=== PATIENT | female | born 2000 | race Caucasian/White ===

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

== ENCOUNTER 2018-04-06 07:57 | Inpatient (IN) | payer MEDICAID ==
[~2018-04-06] VITALS: Ht 152.4 cm; Wt 110.9 kg
[2018-04-06] VITALS (44 sets, daily range): BP systolic 109–140; BP diastolic 53–83; PULSE 68–100; TEMP 97.4–98.6
[~2018-04-06 07:57] MED LIST changes: +MOTRIN 600600 MG/TAB PO; +PRENATAL VITAMI1 TA3 PO
[2018-04-06 09:00] LABS: BASO % 0.2 % (0.0-2.0); EOS # 0.1 (0.0-0.7); EOS % 1.1 % (0-4.0); GRAN # 8.5 (1.4-6.5); GRAN % 78.1 % (42.2-75.2); LYMPH # 1.7 (1.2-3.4); LYMPH % 16.1 % (20.0-51.0); MEAN CELL VOLUME 85 fl (80.0-95.0); MEAN CORPUSCULAR HGB CONC 32 g/dl (33.0-37.0); MEAN PLATELET VOLUME 9.8 fl (7.4-10.4); MONO # 0.4 (0.1-0.6); MONO % 4.1 % (1.7-9.3); PLATELET COUNT 212 K/mm3 (130-400); RED BLOOD COUNT 3.43 M/mm3 (4.10-5.30)
[2018-04-06 09:01] LABS: HEMATOCRIT 29.1 % (35.0-45.0); HEMOGLOBIN 9.4 g/dl (12.0-15.0); MEAN CORPUSCULAR HEMOGLOBIN 27 pg (26.0-32.0)
[2018-04-06 09:39] LABS: HIV 1/2 Antibodies Non-Reactive; HIV-1p24 Antigen Non-Reactive
[2018-04-06 11:03] LABS: COLLECTION METHOD CATHETER
[2018-04-06 11:23] LABS: PH 7 (5-8); SQUAMOUS EPITHELIAL 0-2 /hpf; TRICYCLIC ANTIDEPRESS URINE NEGATIVE; URINE APPEARANCE Clear; URINE BACTERIA Rare /hpf; URINE BILIRUBIN Negative (NEGATIVE); URINE BLOOD 2+ (NEGATIVE); URINE COLOR Yellow; URINE GLUCOSE Negative (NEGATIVE); URINE KETONE Trace (NEGATIVE); URINE LEUKOCYTE ESTERASE 3+ (NEGATIVE); URINE NITRATE Negative (NEGATIVE); URINE PROTEIN(semi-quant) Negative (NEGATIVE); URINE UROBILINOGEN Negative (NEGATIVE)
[2018-04-06 23:26] LABS: HEPATITIS B SURFACE ANTIGEN Negative (())
[2018-04-07 00:37] LABS: RPR (VDRL) Non-reactive (())
[2018-04-07 04:00] VITALS: BP 125/55; PULSE 70
[2018-04-07 07:51] VITALS: BP 128/80; PULSE 86; TEMP 98.1
[2018-04-07 15:47] VITALS: BP 116/78; PULSE 76; TEMP 98.1
[2018-04-07 20:37] VITALS: BP 129/83; PULSE 67; TEMP 98.2
[2018-04-08 02:42] VITALS: BP 131/77; PULSE 61; TEMP 98
[2018-04-08 07:30] VITALS: BP 118/73; PULSE 72; TEMP 98.5
[2018-04-08] MEDS ORDERED: IBU600 MG PO (08:44)
== END 2018-04-08 11:55 | disposition home or self-care (01) | DRG 775 ==
LOC: LDRO 07:57 → OB 08:00 → LDR 08:00 → OB 22:30
PROVIDERS: Obstetrics & Gynecology
PROC: 10E0XZZ Delivery of Products of Conception, External Approach (ICD-10-PCS; principal; 2018-04-06)
DX: O48.0 Post-term pregnancy (principal); O69.81X0 Labor and delivery complicated by cord around neck, without compression, not applicable or unspecified; O99.214 Obesity complicating childbirth; Z3A.40 40 weeks gestation of pregnancy; Z37.0 Single live birth; Z91.19 Patient's noncompliance with other medical treatment and regimen
CPT/HCPCS: J2540; J2590; J2791; J7120